=== PATIENT | male | born 1990 | race Caucasian/White ===

== ENCOUNTER 2020-07-22 16:09 | Emergency (ER) | payer BC ==
[~2020-07-22] VITALS: Ht 170.2 cm; Wt 81.7 kg
[~2020-07-22 16:09] MED LIST: CYCL10; HYDACE5 PO; IBUP600; IBUP800 PO; NAPR500 PO; OXYACE5T PO
[2020-07-22] MEDS ORDERED: HYDR1TAB94 PO (18:44)
[2020-07-22] MEDS ORDERED: METPHE5 PO (19:01)
== END 2020-07-22 19:08 | disposition home or self-care (01) ==
LOC: ER 16:09
DX: S86.012A Strain of left Achilles tendon, initial encounter (principal); X50.1XXA Overexertion from prolonged static or awkward postures, initial encounter
CPT/HCPCS: 29515; 76882; 99283-25

== ENCOUNTER 2020-07-29 12:30 | Day surgery (SDC) | payer BC ==
[~2020-07-29] VITALS: Ht 170.2 cm; Wt 85.5 kg
[~2020-07-29 12:30] MED LIST changes: +HYDR1TAB94 PO; +METPHE5 PO
--- NOTE | 2020-07-29 14:58 | NUR ---
07/29/20 1458 Sandra [id number] EPI ADDED INTO 30CC 0.5% MARCAINE=0.5% MARCAINE WITH EPI1:200,000.
== END 2020-07-29 16:05 | disposition home or self-care (01) ==
LOC: ORSCSDS 12:30
PROVIDERS: Podiatrist Foot & Ankle Surgery
PROC: 0LQP0ZZ Repair Left Lower Leg Tendon, Open Approach (ICD-10-PCS; principal; 2020-07-29 14:45)
DX: S86.012A Strain of left Achilles tendon, initial encounter (principal); F17.220 Nicotine dependence, chewing tobacco, uncomplicated
CPT/HCPCS: J0171; J0690; J1100; J1885; J2001; J2250; J2405; J2704; J3010

== ENCOUNTER 2021-04-26 19:51 | Emergency (ER) | payer BC ==
[~2021-04-26] VITALS: Ht 170.2 cm; Wt 79.4 kg
[2021-04-26 20:25] LABS: BASOPHILS ABSOLUTE AUTO 0.04 K/mm3 (0.00-0.23); BASOPHILS PERCENT AUTO 0 % (0-2); EOSINOPHILS ABSOLUTE AUTO 0.12 K/mm3 (0.00-0.68); EOSINOPHILS PERCENT AUTO 1 % (0-6); Hematocrit 43.7 % (37.0-53.0); Hemoglobin 14.1 g/dL (13.5-17.5); IMMATURE GRAN ABSOLUTE AUTO 0.05 K/mm3 (0.00-0.10); IMMATURE GRAN PERCENT AUTO 0 % (0-1); LYMPHOCYTES ABSOLUTE AUTO 1.75 K/mm3 (0.84-5.20); LYMPHOCYTES PERCENT AUTO 16 % (21-46); MONOCYTES ABSOLUTE AUTO 0.58 K/mm3 (0.16-1.47); MONOCYTES PERCENT AUTO 5 % (4-13); Mean Corpuscular HGB 30.1 pg (26.0-34.0); Mean Corpuscular HGB Conc 32.3 g/dL (31.5-36.5); Mean Corpuscular Volume 93 fL (80-100); Mean Platelet Volume 8.7 fL (9.1-12.4); NEUTROPHILS PERCENT AUTO 77 % (41-73); Platelet Count 257 K/mm3 (150-400); RDW Coefficient Variation 12.7 % (11.7-14.2); RDW Standard Deviation 43.3 fL (35.1-46.3); Red Blood Cell Count 4.68 M/mm3 (4.30-5.90); White Blood Cell Count 11.14 K/mm3 (4.00-11.30)
[2021-04-26 21:03] LABS: Alanine Aminotransfer (ALT/SGP 65 U/L (12-78); Albumin, Blood 4.2 g/dL (3.4-5.0); Albumin/Globulin Ratio 1.3 (0.8-1.8); Alk Phos 77 U/L (50-136); Anion Gap 9 mmol/L (6-16); Aspartate Aminotrans (AST/SGOT 42 U/L (12-37); Bilirubin, Total 0.3 mg/dL (0.1-1.0); Blood Urea Nitrogen 18 mg/dL (8-24); CO2, Blood 27 mmol/L (21-32); Calcium, Blood 9.1 mg/dL (8.5-10.1); Chloride, Blood 103 mmol/L (98-108); Globulin, Blood 3.3 g/dL (2.2-4.0); Glomerular Filtration Rate >60 (60-); Glucose, Blood 111 mg/dL (70-99); Potassium, Blood 3.6 mmol/L (3.5-5.5); Sodium, Blood 139 mmol/L (136-145); Total Protein, Blood 7.5 g/dL (6.4-8.2); Troponin I <0.015 ng/mL (0.000-0.040)
[2021-04-26] MEDS ORDERED: Amphetamine Sal20 MG PO (21:24)
[2021-04-26] MEDS ORDERED: Amphetamine Sal30 MG PO (21:24)
== END 2021-04-26 22:05 | disposition home or self-care (01) ==
LOC: ER 19:51
PROVIDERS: Physician Assistant
DX: R07.9 Chest pain, unspecified (principal); Z79.899 Other long term (current) drug therapy
CPT/HCPCS: 36415; 71045; 80053; 84484; 85025; 93005; 93010; 99284-25

== ENCOUNTER → 2024-08-13 | Outpatient (CLI) | payer BC ==
[~2024-08-13] MED LIST changes: +Amphetamine Sal20 MG PO; +Amphetamine Sal30 MG PO
[2024-08-16 17:23] LABS: AMPHETAMINE,URN,QUANT 650 ng/mL; MDA,URN,QUANT <200 ng/mL; MDEA,URN,QUANT <200 ng/mL; MDMA,URN,QUANT <200 ng/mL; METHAMPHETAMINE,URN,QUANT <200 ng/mL; PHENTERMINE,URN,QUANT <200 ng/mL
== END ==
LOC: LAB SHORT 10:30 → LAB 10:30
PROVIDERS: Physician Assistant
DX: Z51.81 Encounter for therapeutic drug level monitoring (principal); Z79.899 Other long term (current) drug therapy
CPT/HCPCS: G0480

== ENCOUNTER → 2025-03-15 | Outpatient (CLI) | payer BC ==
[2025-03-19 13:42] LABS: AMPHETAMINE,URN,QUANT 329 ng/mL; MDA,URN,QUANT <200 ng/mL; MDEA,URN,QUANT <200 ng/mL; MDMA,URN,QUANT <200 ng/mL; METHAMPHETAMINE,URN,QUANT <200 ng/mL; PHENTERMINE,URN,QUANT <200 ng/mL
== END | disposition home or self-care (01) ==
LOC: LAB 09:10 → LAB SHORT 09:10
PROVIDERS: Physician Assistant
DX: Z51.81 Encounter for therapeutic drug level monitoring (principal); Z79.899 Other long term (current) drug therapy
CPT/HCPCS: G0480

== ENCOUNTER 2025-03-25 12:06 | Emergency (ER) | payer BC ==
[~2025-03-25] VITALS: Ht 170.2 cm; Wt 79.4 kg
[2025-03-25 12:32] VITALS: BP 136/79
== END 2025-03-25 14:50 | disposition home or self-care (01) ==
LOC: ER 12:06
DX: S86.111A Strain of other muscle(s) and tendon(s) of posterior muscle group at lower leg level, right leg, initial encounter (principal); Z59.89 Other problems related to housing and economic circumstances; X58.XXXA Exposure to other specified factors, initial encounter; Y93.61 Activity, american tackle football
CPT/HCPCS: 76882; 99283-25